=== PATIENT | female | born 1975 | race Two or more races ===

== ENCOUNTER → 2024-04-26 | Outpatient (CLI) | payer MEDICAID, SELFPAY ==
--- NOTE | 2024-04-26 11:45 | XR_ITS ---
Examination: Screening digital mammography, bilateral Computer aided detection 3-D breast Tomosynthesis, bilateral Date and time of exam: April 26, 2024 1132 hours Compared to mammograms dating to August 28, 2021 Indication: Screening Technique: Nonmagnified MLO, CC views of the breasts to been obtained, reconstructed from 3-D Tomosynthesis images. R2 computer aided detection program utilized for evaluation of suspicious masses and/or abnormal calcifications. 3-D Tomosynthesis images obtained. Findings: The breasts are heterogeneously dense, which may obscure small masses Skin lesion upper left breast Benign calcifications No interval suspicious masses Impression: BI-RADS category II: Benign Findings. Recommend 1 year follow-up mammogram.
== END | disposition home or self-care (01) ==
LOC: CDIM 11:21
PROVIDERS: PCP Physician Assistant; Referring Provider Physician Assistant; Visit Provider Physician Assistant
DX: Z12.31 Encounter for screening mammogram for malignant neoplasm of breast (principal); R92.323 Mammographic fibroglandular density, bilateral breasts; R92.1 Mammographic calcification found on diagnostic imaging of breast
CPT/HCPCS: 77063; 77067

== ENCOUNTER → 2024-06-12 | Outpatient (CLI) | payer MEDICAID, SELFPAY ==
--- NOTE | 2024-06-12 08:45 | XR_ITS ---
Examination: MRI right hand, without contrast Date and time of exam: December 09, 2024 at 0853 hrs. Indications: Palpable mass about the distal interphalangeal joint right third digit, mass removed one year ago Technique: Multiple axial sagittal and coronal images of the right hand have been obtained with the Siemens high-resolution 1.5 Eve MRI scanner. Images obtained include T2-weighted fat-suppressed sagittal sections, TR 3500, TE 46, T2 weighted coronal fat suppressed images, TR 3050, TE 84, T2-weighted transverse fat suppressed images, TR 3260, TE 63, proton density transverse images, TR 4720 TE 46, and T1 weighted coronal images, TR 560, TE 13. Findings: No bone marrow contusion or occult fracture Soft tissue masses palmar aspect of the third digit at the level of the distal interphalangeal joint These masses are circumscribed, measuring 6 x 4 mm and The mass is mildly displaced the flexor tendon These masses do not erode the cortex of the distal phalanx third digit No annular angelica tear Impression: Two circumscribed soft tissue masses palmar aspect of the third digit at the level of the distal interphalangeal joint These masses are separate from the flexor tendon I do not have the histology report from the prior surgical resection
== END | disposition home or self-care (01) ==
LOC: SMRI 08:05
PROVIDERS: PCP Physician Assistant; Referring Provider Physician Assistant; Visit Provider Physician Assistant
DX: R22.31 Localized swelling, mass and lump, right upper limb (principal); M25.449 Effusion, unspecified hand
CPT/HCPCS: 73218

== ENCOUNTER → 2024-10-15 | Outpatient (CLI) | payer MEDICAID, SELFPAY ==
--- NOTE | 2024-10-15 09:56 | XR_ITS ---
Examination: Wrist, right 3 views Technique: Wrist AP, oblique, lateral 3 views Date and time of exam: October 15, 2024 1009 hours INDICATIONS: Right wrist pain beginning 2 years ago FINDINGS: Mild to moderate osteoarthritis first carpometacarpal joint No fracture or dislocation IMPRESSION: Mild to moderate osteoarthritis first carpometacarpal joint
--- NOTE | 2024-10-15 09:56 | XR_ITS ---
Examination: Hand, right 3 views Technique: Hand AP, oblique, lateral 3 views Date and time of exam: October 15, 2024 1009 hours INDICATIONS: Right hand pain 2 years. 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
== END | disposition home or self-care (01) ==
PROVIDERS: PCP Physician Assistant
DX: M19.041 Primary osteoarthritis, right hand (principal); M18.11 Unilateral primary osteoarthritis of first carpometacarpal joint, right hand
CPT/HCPCS: 73110; 73130

== ENCOUNTER 2025-05-23 08:42 | Outpatient (RCR) | payer MEDICAID, SELFPAY ==
--- NOTE | 2025-05-23 09:14 | PT.OIERPT ---
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 Since the procedure Pt continues to have pain up and down her arm. Pt has limitation with gripping, lifting, chores, self care, cooking, cleaning, and performing recreational activities. Objective: Right Wrist AROM: all motions are WNL Right Wrist MMTs: grossly 3+/5 Right 3rd Digit ROM: all motions are WFL Booking Officer Strength L: 60 lbs R: 43 lbs Assessment: Pt demonstrate right hand weakness with pain s/p surgery leading to difficulty with ADLs. 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
== END 2025-05-25 23:59 | disposition home or self-care (01) ==
LOC: CPTX 08:42
DX: M79.641 Pain in right hand (principal); R53.1 Weakness; Z98.890 Other specified postprocedural states
CPT/HCPCS: 97162